=== PATIENT | male | born 1980 | race Caucasian/White ===

== ENCOUNTER 2019-12-17 11:34 | Emergency (ER) | payer MEDICARE, MEDICAID, SELFPAY ==
[2019-12-17 11:48] VITALS: BP 115/76; PULSE 64; RESP 18; TEMP 36.1; O2SAT 99; BMI 28.5
--- NOTE | 2019-12-17 11:57 | W.ED.BACK ---
HPI - Back Pain/Injury General: Chief Complaint: Back Pain/Injury Stated Complaint: back pain Time Seen by Provider: 12/17/19 11:57 Source: patient Mode of arrival: ambulatory Limitations: no limitations History of Present Illness: HPI Narrative: Patient comes in today for low back pain. Patient states increased pain on the left side of the low back. Patient also complains of numbness to the left arm. Patient has a history of congenital deafness. Patient appears well. Patient moves extremities without difficulty. Review of Systems General: Reports: 10 or more systems reviewed and unremarkable except in HPI and below Musc: Reports: back pain PFSH ED PFSH: Social History Smoking and tobacco status: never smoked Physical Exam Const: COMMON NORMALS: no acute distress and patient oriented x3 GENERAL APPEARANCE: cooperative HENMT: COMMON NORMALS: normocephalic and Normal external nose present HEAD & SCALP: normal to inspection and normocephalic NOSE: Normal external nose present MOUTH: Normal oral and palatal mucosa present THROAT: posterior oropharynx normal Eye: GENERAL EYE: appearance normal, both eyes and all related structures Neck/C-Spine: COMMON NORMALS: full ROM Chest: COMMONS NORMALS: normal inspection of the chest Resp: COMMON NORMALS: normal respiratory effort EFFORT & INSPECTION: Yes able to speak in complete sentences Cardio: COMMON NORMALS: regular rate and regular rhythm RATE: regular rate RHYTHM: regular rhythm GI: COMMON NORMALS: non-tender : COMMON NORMALS: Yes no CVA tenderness BLADDER/KIDNEY EXAM: Yes no CVA tenderness Back/Pelvis: COMMON NORMALS: no CVA tenderness LUMBAR SPINE/LOWER BACK: Yes paraspinal muscle tenderness Lumbar paraspinal muscle tenderness: left and Yes paraspinal muscle spasm Lumbar paraspinal muscle spasm: left Extremity: COMMON NORMALS: normal to inspection Neuro: COMMON NORMALS: patient oriented x3 and moves all extremities Psych: COMMON NORMALS: mental status grossly normal and cooperative Skin: COMMON NORMALS: no rashes or lesions noted GENERAL SKIN EXAM: no rashes or lesions noted Course Vital Signs: Vital signs: Vital Signs Temperature 96.9 F L 12/17/19 11:48 Pulse Rate 64 12/17/19 11:48 Respiratory Rate 18 12/17/19 11:48 Blood Pressure 115/76 12/17/19 11:48 Pulse Oximetry 99 12/17/19 11:48 MDM - Back Pain/Injury MDM Narrative: Medical decision making narrative: Patient comes in today for complaints of low back pain. Exam notes some muscle tenderness in the low back but no vertebral tenderness. Leg lift test was positive on the left versus the right. Skin was warm and dry. Vital signs were normal. Differential diagnosis includes but not limited to lumbar strain, intervertebral disc disease, facet arthropathy. X-rays were negative for any significant abnormality. Reviewed exam with patient and female significant other with recommendations for follow-up and treatment. Patient reported understanding and agreed to plan. Discharge Plan Discharge Patient Disposition: Home, Self-Care Clinical Impression: Lumbar radiculopathy Condition: Stable Prescriptions: New naproxen 500 mg tablet 500 mg PO Q12H Qty: 20 RF: 0 tizanidine 4 mg tablet 4 mg PO Q8H PRN (Reason: muscle spasticity) Qty: 14 RF: 0 Discharge Orders: Discharge Order (Routine); Ordered 12/17/19 Ordered By: Miko Salazar Discharge Diet: Usual diet Discharge Activity: Increase activity as tolerated Patient Instructions: Low Back Strain (ED) Activity Restrictions/Additional Instructions: Drink plenty of water with medications. Activity as tolerated. Gentle stretching and range of motion exercises early. Follow-up with primary care in 1 week. Return to the ER for high fever or uncontrolled symptoms. Coding Level of Care Code ED Systems Project Manager for Steph Rogers Exam Comprehensive
--- NOTE | 2019-12-17 12:24 | XRR_ITS ---
PROCEDURE INFORMATION: Exam: XR Cervical Spine, 2 or 3 Views Exam date and time: 12/17/2019 1:08 PM Age: 39 years old Clinical indication: Neck pain; Additional info: Neck pain and low back pain TECHNIQUE: Imaging protocol: XR of the cervical spine, 2 or 3 views. COMPARISON: No relevant prior studies available. FINDINGS: Vertebrae: Normal. No acute fracture. There is loss of cervical lordosis suggesting muscle spasm. Soft tissues: Unremarkable. XR/XR cervical spine 3V* [id number] IMPRESSION: No acute findings. Loss of cervical lordosis
--- NOTE | 2019-12-17 12:24 | XRR_ITS ---
PROCEDURE INFORMATION: Exam: XR Lumbosacral Spine, 2 or 3 Views Exam date and time: 12/17/2019 12:56 PM Age: 39 years old Clinical indication: Low back pain; Patient HX: Low back and neck pain TECHNIQUE: Imaging protocol: XR of the lumbosacral spine, 2 or 3 views. COMPARISON: No relevant prior studies available. FINDINGS: Vertebrae: Normal. No acute fracture. Normal alignment. Soft tissues: Unremarkable. XR/XR lumbar spine 2-3V* [id number] IMPRESSION: No acute findings.
[2019-12-17 13:22] VITALS: BP 133/98; PULSE 62; RESP 18; O2SAT 95
== END 2019-12-17 13:22 | disposition home or self-care (01) ==
PROVIDERS: Emergency Provider Nurse Practitioner Family
DX: M54.16 Radiculopathy, lumbar region (principal)
CPT/HCPCS: 12345; 72040; 72100; 99281; 99283

== ENCOUNTER 2020-05-05 11:57 | Outpatient (RCR) | payer MEDICARE, MEDICAID, SELFPAY | END 2020-05-24 23:59 | disposition home or self-care (01) | LOC: SPT 11:57 | PROVIDERS: PCP Nurse Practitioner Family; Referring Provider Nurse Practitioner Family; Visit Provider Nurse Practitioner Family | DX: M54.5 Low back pain (principal); M25.512 Pain in left shoulder | CPT/HCPCS: 97110; 97161 ==

== ENCOUNTER 2020-05-25 06:00 | Outpatient (RCR) | payer MEDICARE, MEDICAID, SELFPAY | END 2020-06-24 23:59 | disposition home or self-care (01) | LOC: SPT 06:00 | PROVIDERS: PCP Nurse Practitioner Family; Referring Provider Nurse Practitioner Family; Visit Provider Nurse Practitioner Family | DX: M54.5 Low back pain (principal); M25.512 Pain in left shoulder; G89.29 Other chronic pain | CPT/HCPCS: 97110 ==

== ENCOUNTER 2020-06-25 06:00 | Outpatient (RCR) | payer MEDICARE, MEDICAID, SELFPAY | END 2020-07-25 23:59 | disposition home or self-care (01) | LOC: SPT 06:00 | PROVIDERS: PCP Nurse Practitioner Family; Referring Provider Nurse Practitioner Family; Visit Provider Nurse Practitioner Family | DX: M54.5 Low back pain (principal); M25.512 Pain in left shoulder | CPT/HCPCS: 97110 ==